=== PATIENT | male | born 1990 | race Caucasian/White ===

== ENCOUNTER 2017-05-02 21:24 | Emergency (ER) | payer SELFPAY ==
[2017-05-02 21:28] VITALS: BP 164/96; PULSE 93; RESP 18; TEMP 97.3; O2SAT 99
--- NOTE | 2017-05-02 21:30 | EDPHY ---
H & P Stated Complaint: Dental pain upper left Time Seen by Provider: 05/02/17 21:29 HPI/ROS: HPI: This is a 26-year-old male who presents with Chief Complaint: Dental pain upper left Location: upper left Quality: dental pain Duration: 1-3 hours Signs and Symptoms: No fever, no jaw swelling, no nausea, no vomiting, no pain with chewing, + sensitivity to hot and cold foods, no neck stiffness Timing: Sudden, intermittent episodes Severity: Moderate Context: Patient reports for several years he has had a cracked left upper molar. He has been followed by his dentist for the last year reports that nothing has been done as it has been asymptomatic. Today for some reason it started to hurt again. Denies any jaw swelling/fever/Trauma. Patient has tried Tylenol and ibuprofen without pain relief. Patient reports that he was able to eat today although he was extremely sensitive to hot and cold foods as well as if food touched the cracked molar. It is Friday evening so patient was unable to call his dentist. Modifying Factors: See above Comment: ROS: see HPI Constitutional: No fever, no chills, no weight loss Eyes: No blurred vision Respiratory: No shortness of breath, no cough Cardiovascular: No chest pain Gastrointestinal: No nausea, no vomiting, no diarrhea Genitourinary: No dysuria Extremities: No myalgias Neurologic: No weakness, no numbness Skin: No rashes Hematologic: No bruising, no bleeding MEDICAL/SURGICAL/SOCIAL HISTORY: Medical history: Generally healthy. Does not take any regular medications. Surgical history: Denies Social history: Employed. CONSTITUTIONAL: Well-developed well-nourished adult white male, awake and alert , no obvious distress HEENT: Atraumatic and normocephalic, PERRL, EOMI. Tympanic membranes clear. No malocclusion. Oropharynx clear, tooth #16 partially cracked near the gum line; no gingivitis; no erythema; no fluctuance. no tonsillar exudate and moist pink mucosa. Airway patent. No lymphadenopathy. No meningismus. Cardiovascular: Normal S1/S2, regular rate, regular rhythm, without murmur rub or gallop. PULMONARY/CHEST: Symmetrical and nontender. Clear to auscultation bilaterally. Good air movement. No accessory muscle usage. ABDOMEN: Soft, nondistended, nontender, no rebound, no guarding, no peritoneal signs, no masses or organomegaly. No CVAT. EXTREMITIES: 2/2 pulses, strength 5/5, no deformities, no clubbing, no cyanosis or edema. NEUROLOGICAL: no focal neuro deficits. GCS 15. SKIN: Warm and dry, no erythema. no rash. Good capillary refill. Source: Patient Exam Limitations: No limitations - Personal History Current Tetanus/Diphtheria Vaccine: Unsure Current Tetanus Diphtheria and Acellular Pertussis (TDAP): Unsure - Medical/Surgical History Hx Asthma: No Hx Chronic Respiratory Disease: No Hx Diabetes: No Hx Cardiac Disease: No Hx Renal Disease: No Hx Cirrhosis: No Hx Alcoholism: No Hx HIV/AIDS: No Hx Splenectomy or Spleen Trauma: No Other PMH: none - Social History Smoking Status: Current some day smoker Constitutional: Initial Vital Signs Temperature (C) 36.3 C 05/02/17 21:26 Heart Rate 93 05/02/17 21:26 Respiratory Rate 18 05/02/17 21:26 Blood Pressure 164/96 H 05/02/17 21:26 O2 Sat (%) 99 05/02/17 21:26 O2 Delivery Mode Room Air Allergies/Adverse Reactions: No Known Allergies Allergy (Unverified 05/02/17 21:25) Home Medications: Medication Instructions Recorded Amoxicillin Trihydrate [Amoxil] 500 mg PO Q12H #14 cap 05/02/17 traMADol [Ultram 50 mg (*)] 50 mg PO Q6 PRN #10 tab 05/02/17 Medical Decision Making Procedures: Procedure: Dental block I obtained verbal consent from the patient to perform a dental block who was informed about the possibility of bleeding and pain. The tooth #16 was anesthetized with 0.5% bupivacaine in the buccal mucosa. The patient tolerated the procedure well and received near immediate relief pain. No complications were noted. The procedure was performed by myself. ED Course/Re-evaluation: No signs of facial cellulitis/periapical abscess/dehydration Complete relief of pain with dental block. Given prescription for amoxicillin and Rx for tramadol as this weekend unable to reach his dentist. This patient was seen under the supervision of my primary supervising physician. I evaluated care for this patient independently. Differential Diagnosis: Differential diagnosis includes but is not limited to odontalgia, nerve injury, dental abscess. Departure - Departure Disposition: Home, Routine, Self-Care Clinical Impression: Pain of molar, Broken or cracked tooth, nontraumatic Condition: Good Instructions: Toothache (ED) Additional Instructions: Take Tylenol 650 mg every 4 hours and/or Ibuprofen 600 mg every 8 hours with food as needed for pain. Use Tramadol every 6 hours as needed for severe/break through pain. Do not use Tylenol and Percocet concomitantly. Apply ice for 30 minutes at a time; 2-3 times per day for the next 1-2 days. Take Amoxicillin 500 mg 2 times a day to prevent infection. Call your Dentist on Friday for a follow-up appointment as soon as possible. Referrals: [facility] [[facility]] - As per Instructions Prescriptions: Amoxicillin Trihydrate [Amoxil] 500 mg PO Q12H #14 cap traMADol [Ultram 50 mg (*)] 50 mg PO Q6 PRN #10 tab PRN Reason: Pain, Severe
== END 2017-05-02 21:55 | disposition home or self-care (01) ==
PROC: 3E0X3BZ Introduction of Anesthetic Agent into Cranial Nerves, Percutaneous Approach (ICD-10-PCS; principal; 2017-05-02)
DX: K03.81 Cracked tooth (principal); F17.200 Nicotine dependence, unspecified, uncomplicated